=== PATIENT | female | born 1960 | race Caucasian/White ===

== ENCOUNTER 2021-07-17 13:27 | Emergency (ER) | payer BC ==
[2021-07-17 14:25] LABS: CHLORIDE,CL 104 mmol/L (98-107); SODIUM,NA 140 mmol/L (136-145)
[2021-07-17 14:26] LABS: ANION GAP 12.5 mmol/L (5-15)
[2021-07-17] MEDS ORDERED: Meclizine 25 MG Tab PO ONE ×2 (14:43→14:44)
== END 2021-07-17 15:00 | disposition home or self-care (01) ==
LOC: VM.ED 13:27
DX: R42 Dizziness and giddiness (principal); R00.1 Bradycardia, unspecified; Z88.1 Allergy status to other antibiotic agents
CPT/HCPCS: 36415; 80053; 81003; 84443; 84484; 85025; 93005; 93010; 99284; 99284-25; A9270-GY